=== PATIENT | male | born 1975 | race Hispanic/Latino ===

== ENCOUNTER 2018-04-25 09:00 | Emergency (ER) | payer OTHER ==
--- NOTE | 2018-04-25 09:44 | RAD ---
THREE VIEWS LEFT SHOULDER: History: Fall, pain. Comparison: None. FINDINGS: The glenohumeral joint space is preserved. No fracture or dislocation with regard to the proximal hum erus and the adjacent glenoid. Minimally displaced mid left clavicle fracture is noted. Left ribs are unremarkable. IMPRESSION: Left clavicle fracture. POS: C
== END 2018-04-25 10:05 | disposition home or self-care (01) ==
LOC: BURERS 09:00
DX: S43.402A Unspecified sprain of left shoulder joint, initial encounter (principal); I10 Essential (primary) hypertension; X50.1XXA Overexertion from prolonged static or awkward postures, initial encounter